=== PATIENT | female | born 1960 | race Caucasian/White ===

== ENCOUNTER → 2017-02-18 | Outpatient (CLI) | payer OTHER ==
[~2017-02-18] MED LIST: NKHM PO
== END | disposition home or self-care (01) ==
LOC: MAMMO 15:40
DX: Z12.31 Encounter for screening mammogram for malignant neoplasm of breast (principal)

== ENCOUNTER 2023-04-18 18:10 | Emergency (ER) | payer OTHER ==
[~2023-04-18] VITALS: Ht 149.8 cm; Wt 73.9 kg
== END 2023-04-18 22:08 | disposition home or self-care (01) ==
LOC: ED 18:10
DX: M79.602 Pain in left arm (principal); R51.9 Headache, unspecified; M54.6 Pain in thoracic spine; E78.00 Pure hypercholesterolemia, unspecified; Z88.0 Allergy status to penicillin; Z98.51 Tubal ligation status; Z98.890 Other specified postprocedural states; V49.9XXA Car occupant (driver) (passenger) injured in unspecified traffic accident, initial encounter; Y93.89 Activity, other specified; Y92.410 Unspecified street and highway as the place of occurrence of the external cause; Y99.8 Other external cause status